=== PATIENT | female | born 2000 | race Asian ===

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

== ENCOUNTER 2022-10-08 17:14 | Emergency (ER) | payer OTHER, MEDICAID, SELFPAY ==
[2022-10-08 17:16] VITALS: BP 118/79; PULSE 86; RESP 16; TEMP 37.1; O2SAT 98; BMI 19.8
--- NOTE | 2022-10-08 17:56 | ED_ITS ---
HPI - URI/Sore Throat General Chief Complaint: Upper Respiratory Symptoms Stated Complaint: cough/fever x4 days Time Seen by Provider: 10/08/22 17:26 Source: patient Mode of arrival: Ambulatory History of Present Illness HPI Narrative: 22-year-old female nonsmoker with no chronic medical history presents with a chief complaint of about 4 days of typical upper respiratory symptoms including mild fever and headache along with nasal congestion, sneezing and a dry hacking cough. She has a right-sided sore throat but denies any difficulty in swallowing. She denies any chest pain or trouble breathing. She has had no nausea, vomiting or diarrhea Related Data Home Medications Medication Instructions Recorded Confirmed fluoxetine 10 mg capsule (Prozac) 20 mg PO DAILY 04/16/21 04/16/21 Previous Rx's Medication Instructions Recorded erythromycin 5 mg/gram (0.5 %) eye 1 applic ophthalmic (eye) Q6H #3.5 04/16/21 ointment grams benzonatate 200 mg capsule 200 mg PO BID PRN cough #20 caps 10/08/22 Allergies Allergy/AdvReac Type Severity Reaction Status Date / Time No Known Drug Allergies Allergy Verified 12/24/21 18:16 Review of Systems Review of Systems Narrative: GENERAL: Denies chills, fatigue, malaise, fever, sweats. HEENT: See HPI RESPIRATORY: See HPI CARDIOVASCULAR: Denies chest pain, palpitations, orthopnea, edema, GASTROINTESTINAL: Denies nausea, vomiting, abdominal pain, diarrhea, constipation, melena. : Denies dysuria, frequency, incontinence, hematuria, urinary retention. MUSCULOSKELETAL: denies weakness, joint pain, or bony pain SKIN: Denies rash, skin lesions, or other NEUROLOGIC: Denies weakness, headache, numbness, change in speech, confusion, seizures, incoordination. PSYCHIATRIC: No concerning psychosocial issues. 12 point review of systems is negative except for those stated above Patient History Medical History UTI (urinary tract infection) Social History Smoking Status: Never smoker Smoking Status: Never smoker alcohol intake frequency: 0-2 drinks per day Substance Use Type: does not use Exam Narrative Exam Narrative: GENERAL: [22] year old patient appears stated age. Well-developed patient, in mild distress. HEAD: Atraumatic. Normocephalic. EYES: Pupils equal round and reactive. Extraocular motions intact. No scleral icterus. No injection or drainage. ENT: Nose without bleeding, purulent drainage. Throat without erythema, t onsillar hypertrophy or exudate. Airway patent. NECK: Trachea midline. Non tender CARDIOVASCULAR: Regular rate and rhythm without murmurs, gallops, or rubs. RESPIRATORY: Clear to auscultation. Breath sounds equal bilaterally. No wheezes, rales, or rhonchi. GASTROINTESTINAL: Abdomen soft, non-tender, nondistended. EXTREMITIES: No edema or joint tenderness. BACK: Nontender without deformity or crepitance. No flank tenderness. NEURO: AOx3. SKIN: No rash or erythema of visible areas Initial Vital Signs Initial Vital Signs: Vital Signs Temperature 98.8 F 10/08/22 17:16 Pulse Rate 86 10/08/22 17:16 Respiratory Rate 16 10/08/22 17:16 Blood Pressure 118/79 10/08/22 17:16 Pulse Oximetry 98 10/08/22 17:16 Oxygen Delivery Method 10/08/22 17:16 Course Orders Ordered: Discontinued Medications Benzonatate (Benzonatate 100 Mg Capsule) 100 mg PO NOW ONE Stop: 10/08/22 18:37 Last Admin: 10/08/22 18:41 Dose: 100 mg Documented By: MACKENZIE Vital Signs Vital signs: Vital Signs - 8 hr 10/08/22 17:16 Temperature 98.8 F Pulse Rate 86 Respiratory Rate 16 Blood Pressure 118/79 Pulse Oximetry 98 Oxygen Delivery Method Room Air MDM - URI/Sore Throat Lab Data Labs: Lab Results 10/08/22 Range/Units 17:34 SARS-CoV-2 (PCR) Negative (Negative) Influenza A (RT-PCR) Flu a positive H (NEGATIVE) Influenza B (RT-PCR) Flu b negative (NEGATIVE) RSV (PCR) Negative (Negative) Point of Care Testing Rapid Strep A Negative Discharge Plan Departure Patient Disposition: Home Clinical Impression: Flu Instructions: DI for Influenza -- Adult Activity Restrictions/Additional Instructions: *You have been diagnosed with [various symptoms due to Flu A *What to do: *Please consider the use of [id number] antihistamines such as cetirizine syrup which can dry the secretions that are causing many of these symptoms. As we discussed, a tsp of honey is a great option to help with cough if needed. Fever: *Fever is temperature over 101F, it is a common feature of most viral and bacterial infections *Fever tends to come back once the Tylenol (acetaminophen) or Motrin (ibuprofen) wears off as these medications do not treat the underlying cause, just the fever itself *Treat the patient, not the number. If your child is running around and playing you don?t have to treat the fever, however, if they seem grumpy or uncomfortable it is reasonable to treat fever *Consider alternating between Tylenol and Motrin so you will be giving medications prior to the previous dose wearing off: * your history and physical exam are very reassuring and there is no indication that the symptoms are due to a bacterial infection, therefore there is no ind ication for antibiotics. *Please follow up with your primary care provider in 2-3 days, call for an appointment. Let them know you were seen in the Emergency Department and that we ask that you be seen in follow up. We will electronically transmit a record of today's note if your PCP is in our system *If you do not have a primary care provider please contact the [facility] Resource line at [phone]. They will ask some questions about your medical history and help get you set up with a doctor in the community. *Return to Emergency Department if you should have any new, worsening or concerning symptoms increased work of breathing with flaring of nostrils, using belly to breathe, persistent vomiting, or other bothersome symptoms Prescriptions: New benzonatate 200 mg capsule 200 mg PO BID PRN (Reason: cough) Qty: 20 0RF No Action fluoxetine [Prozac] 10 mg capsule 20 mg PO DAILY erythromycin 5 mg/gram (0.5 %) ointment 1 applic ophthalmic (eye) Q6H Qty: 3.5 2RF Referrals: Yesica Mendez ARNP [Primary Care Provider] - Visit Report Forms: Patient Portal/API
[2022-10-08 18:21] LABS: Influenza A - CEPHEID Flu A POSITIVE (NEGATIVE); Influenza B - CEPHEID Flu B NEGATIVE (NEGATIVE); Respiratory Syncytial Virus Negative (Negative)
[2022-10-08 18:23] LABS: COVID-19 CEPHEID 4-PLEX PCR Negative (Negative)
[2022-10-08 18:41] VITALS: BP 105/59; PULSE 80; RESP 18; O2SAT 99
[2022-10-08] MEDS: BENZONATATE 100 MG CAPSULE PO (18:41)
== END 2022-10-08 18:41 | disposition home or self-care (01) ==
PROVIDERS: Emergency Provider Emergency Medicine; Family Provider Registered Nurse; PCP Nurse Practitioner Family
DX: J10.1 Influenza due to other identified influenza virus with other respiratory manifestations (principal); Z20.822 Contact with and (suspected) exposure to COVID-19
CPT/HCPCS: 0241U; 87880; 99283

== ENCOUNTER → 2024-06-25 15:00 | Outpatient (CLI) | payer OTHER, SELFPAY ==
[2024-06-25 18:49] LABS: Urine N gonorrhoeae NOT DETECTED
[2024-06-25 19:02] LABS: Urine Chlamydia NOT DETECTED
== END ==
PROVIDERS: Family Provider Registered Nurse; PCP Nurse Practitioner Family; Visit Provider Nurse Practitioner Family
DX: N89.8 Other specified noninflammatory disorders of vagina (principal); A64 Unspecified sexually transmitted disease
CPT/HCPCS: 87077; 87086; 87186; 87210; 87491; 87591

== ENCOUNTER → 2024-07-29 15:06 | Outpatient (CLI) | payer OTHER, SELFPAY | PROVIDERS: Family Provider Registered Nurse; PCP Nurse Practitioner Family; Visit Provider Physician Assistant Surgical | DX: R30.0 Dysuria (principal); N94.9 Unspecified condition associated with female genital organs and menstrual cycle; N89.8 Other specified noninflammatory disorders of vagina | CPT/HCPCS: 87086; 87210 ==

== ENCOUNTER → 2024-07-29 15:57 | Outpatient (CLI) | payer OTHER, SELFPAY ==
[2024-07-29 17:25] LABS: Hepatitis B Surface Antigen NEGATIVE s/c (NEGATIVE)
[2024-07-29 17:41] LABS: HIV 1 & 2 Ab/Ag 4th Gen Combo NEGATIVE (NEGATIVE); Hep C Virus Ab w/Reflex Quant NEGATIVE s/c (NEGATIVE)
[2024-07-29 18:01] LABS: Urine N gonorrhoeae NOT DETECTED
[2024-07-29 18:02] LABS: Urine Chlamydia NOT DETECTED
== END ==
PROVIDERS: Family Provider Registered Nurse; PCP Nurse Practitioner Family; Referring Provider Physician Assistant Surgical; Visit Provider Physician Assistant Surgical
DX: Z20.2 Contact with and (suspected) exposure to infections with a predominantly sexual mode of transmission (principal); N89.8 Other specified noninflammatory disorders of vagina
CPT/HCPCS: 36415; 86592; 86695; 86696; 86803; 87086; 87210; 87340; 87389; 87491; 87591

== ENCOUNTER → 2024-09-08 17:10 | Outpatient (CLI) | payer OTHER, SELFPAY | PROVIDERS: Family Provider Registered Nurse; PCP Nurse Practitioner Family; Visit Provider Nurse Practitioner Family | DX: R30.0 Dysuria (principal); N94.89 Other specified conditions associated with female genital organs and menstrual cycle | CPT/HCPCS: 87077; 87086; 87186; 87210 ==

== ENCOUNTER → 2024-09-19 17:52 | Outpatient (CLI) | payer OTHER, SELFPAY | PROVIDERS: Family Provider Registered Nurse; PCP Nurse Practitioner Family; Visit Provider Registered Nurse | DX: N94.9 Unspecified condition associated with female genital organs and menstrual cycle (principal) | CPT/HCPCS: 87210 ==